=== PATIENT | female | born 1955 | race Caucasian/White ===

== ENCOUNTER 2023-12-13 10:23 | Emergency (ER) | payer BC, MEDICARE ==
[~2023-12-13] VITALS: Ht 157.5 cm; Wt 77.1 kg
[~2023-12-13 10:23] MED LIST: ADVAIR INH
[2023-12-13 10:41] VITALS: PULSE 101; RESP 18; TEMP 98.1; O2SAT 95
[2023-12-13] MEDS: KETOROLAC TROMETHAMINE 60 MG/2 ML VIAL IM ONE (11:28)
[2023-12-13] MEDS: ACETAMINOPHEN 325 MG TAB PO ONE (11:29)
[2023-12-13] MEDS ORDERED: MELOXICAM15 MG PO (11:52)
[2023-12-13] MEDS ORDERED: MEDROL4 MG PO (11:53)
== END 2023-12-13 12:00 | disposition home or self-care (01) ==
LOC: FSED 10:35
DX: M25.562 Pain in left knee (principal); X50.1XXA Overexertion from prolonged static or awkward postures, initial encounter; Y93.01 Activity, walking, marching and hiking; Y92.89 Other specified places as the place of occurrence of the external cause; K21.9 Gastro-esophageal reflux disease without esophagitis; J45.909 Unspecified asthma, uncomplicated
CPT/HCPCS: 73560; 99284; J1885

== ENCOUNTER 2024-03-21 13:13 | Emergency (ER) | payer BC, MEDICARE ==
[~2024-03-21] VITALS: Ht 157.5 cm; Wt 77.1 kg
[~2024-03-21 13:13] MED LIST changes: +MEDROL4 MG PO; +MELOXICAM15 MG PO
[2024-03-21] MEDS: Vancomycin IV 1 GM in SODIUM CHLORIDE 0.9% 250ML 250 ML IV ONE (15:06)
[2024-03-21 16:00] VITALS: PULSE 89; RESP 18; TEMP 98.3; O2SAT 100
== END 2024-03-21 16:00 | disposition home or self-care (01) ==
LOC: FSED 13:23
DX: M96.89 Other intraoperative and postprocedural complications and disorders of the musculoskeletal system (principal); L03.116 Cellulitis of left lower limb; I10 Essential (primary) hypertension; J45.909 Unspecified asthma, uncomplicated; K21.9 Gastro-esophageal reflux disease without esophagitis
CPT/HCPCS: 80053; 85025; 87040; 99284; J3370; J7050